=== PATIENT | male | born 1955 | race Caucasian/White ===

== ENCOUNTER → 2019-07-18 | Outpatient (CLI) | payer BC ==
--- NOTE | 2019-07-18 11:00 | Diagnostic Imaging Report ---
INDICATION: Chronic kidney disease. PA and lateral views were obtained. FINDINGS: The heart size, mediastinal configuration, and pulmonary vascularity are within normal limits. There is no pleural effusion, pneumothorax, or pneumonia. The osseous structures are unremarkable. IMPRESSION: No acute cardiopulmonary abnormality. Dictated by: Dictated on workstation # [id number]
== END ==
LOC: RAD FS 10:28
PROVIDERS: ATTEND Internal Medicine Nephrology
DX: N18.9 Chronic kidney disease, unspecified (principal)
CPT/HCPCS: 71046

== ENCOUNTER 2019-12-11 02:50 | Observation (INO) | payer BC ==
[~2019-12-11] VITALS: Ht 170.1 cm; Wt 107.6 kg
--- NOTE | 2019-12-11 03:15 | ED Cough/URI ---
General Chief Complaint: Fever-Adult/Adol Stated Complaint: FEVER,SOB Source: patient Exam Limitations: no limitations History of Present Illness Date Seen by Provider: Dec 11, 2019 Time Seen by Provider: 03:00 Initial Comments The patient is a 64-year-old male who presents for evaluation of fever, cough, and shortness of breath. He states that he had a fever last week but that resolved and then started up again last night. He states that his cough is very coarse sounding. He denies any known sick contacts. He is saturating 91-93% on room air upon arrival. He denies chest pain, nausea or vomiting, diaphoresis, night sweats, dizziness, abdominal or back pain, hemoptysis, or syncope. He does report some shortness of breath. He is alert and oriented 4, calm, and appears to be in no distress this time. Timing/Duration: yesterday Severity/Quality: moderate, productive cough Associated Symptoms: cough, fever/chills, shortness of breath Allergies and Home Medications Allergies Uncoded Allergies: PCN (Allergy, Unknown, 12/11/19) Patient Home Medication List Home Medication List Reviewed: Yes Review of Systems Review of Systems Constitutional: fever EENTM: no symptoms reported Respiratory: cough, short of breath Cardiovascular: no symptoms reported Gastrointestinal: no symptoms reported Genitourinary: no symptoms reported Musculoskeletal: no symptoms reported Skin: no symptoms reported Psychiatric/Neurological: No Symptoms Reported Hematologic/Lymphatic: No Symptoms Reported Immunological/Allergic: no symptoms reported All Other Systems Reviewed Negative Unless Noted: Yes Past Ovamtky-Embrzc-Zwdotj Hx Past Med/Social Hx: Reviewed Nursing Past Med/Soc Hx Patient Social History Recent Foreign Travel: No Contact w/Someone Who Travel: No Physical Exam Vital Signs - First Documented 12/11/19 03:05 Temp 38.9 Pulse 109 Resp 16 B/P (MAP) 160/88 (112) Pulse Ox 91 O2 Delivery Room Air Capillary Refill : Height: '" Weight: lbs. oz. kg; BMI Method: General Appearance: WD/WN, no apparent distress Eyes: Bilateral Eye Normal Inspection, Bilateral Eye PERRL, Bilateral Eye EOMI HEENT: PERRL/EOMI, normal ENT inspection, pharynx normal Neck: non-tender, full range of motion, supple Respiratory: no respiratory distress, rhonchi Cardiovascular: no edema, no JVD, tachycardia Gastrointestinal: normal bowel sounds, non tender, soft Extremities: normal range of motion, non-tender, normal inspection, no pedal edema Neurologic/Psychiatric: no motor/sensory deficits, alert, normal mood/affect, oriented x 3 Skin: normal color, warm/dry Focused Exam Lactate Level 12/11/19 03:10: Lactic Acid Level 0.98 Lactic Acid Level Laboratory Tests Test 12/11/19 03:10 Lactic Acid Level 0.98 MMOL/L (0.50-2.00) Progress/Results/Core Measures Suspected Sepsis SIRS Temperature: Pulse: Respiratory Rate: Laboratory Tests 12/11/19 03:10: White Blood Count 7.9 Blood Pressure / Mean: 12/11/19 03:10: Lactic Acid Level 0.98 Laboratory Tests 12/11/19 03:10: Creatinine 1.37H, Platelet Count 166, Total Bilirubin 0.5 Results/Orders Lab Results Laboratory Tests Test 12/11/19 03:10 Range/Units White Blood Count 7.9 4.3-11.0 10^3/uL Red Blood Count 4.10 L 4.35-5.85 10^6/uL Hemoglobin 12.5 L 13.3-17.7 G/DL Hematocrit 37 L 40-54 % Mean Corpuscular Volume 90 80-99 FL Mean Corpuscular Hemoglobin 30 25-34 PG Mean Corpuscular Hemoglobin Concent 34 32-36 G/DL Red Cell Distribution Width 14.1 10.0-14.5 % Platelet Count 166 130-400 10^3/uL Mean Platelet Volume 10.9 H 7.4-10.4 FL Neutrophils (%) (Auto) 69 42-75 % Lymphocytes (%) (Auto) 20 12-44 % Monocytes (%) (Auto) 10 0-12 % Eosinophils (%) (Auto) 1 0-10 % Basophils (%) (Auto) 0 0-10 % Neutrophils # (Auto) 5.5 1.8-7.8 X 10^3 Lymphocytes # (Auto) 1.6 1.0-4.0 X 10^3 Monocytes # (Auto) 0.8 0.0-1.0 X 10^3 Eosinophils # (Auto) 0.1 0.0-0.3 10^3/uL Basophils # (Auto) 0.0 0.0-0.1 10^3/uL Sodium Level 138 135-145 MMOL/L Potassium Level 4.1 3.6-5.0 MMOL/L Chloride Level 101 98-107 MMOL/L Carbon Dioxide Level 23 21-32 MMOL/L Anion Gap 14 5-14 MMOL/L Blood Urea Nitrogen 19 H 7-18 MG/DL Creatinine 1.37 H 0.60-1.30 MG/DL Estimat Glomerular Filtration Rate 52 BUN/Creatinine Ratio 14 Glucose Level 129 H 70-105 MG/DL Lactic Acid Level 0.98 0.50-2.00 MMOL/L Calcium Level 9.5 8.5-10.1 MG/DL Corrected Calcium 9.3 8.5-10.1 MG/DL Total Bilirubin 0.5 0.1-1.0 MG/DL Aspartate Amino Transf (AST/SGOT) 34 5-34 U/L Alanine Aminotransferase (ALT/SGPT) 24 0-55 U/L Alkaline Phosphatase 83 40-136 U/L Total Protein 6.9 6.4-8.2 GM/DL Albumin 4.2 3.2-4.5 GM/DL Micro Results Microbiology 12/11/19 Influenza Types A,B Antigen (LASHONDA) - Final, Complete My Orders Orders - NITA NIELSEN DO Cbc With Automated Diff (12/11/19 03:06) Comprehensive Metabolic Panel (12/11/19 03:06) Ed Iv/Invasive Line Start (12/11/19 03:06) Lactic Acid Analyzer (12/11/19 03:06) Blood Culture (12/11/19 03:06) Chest 1 View Ap/Pa Only (12/11/19 03:06) Influenza A And B Antigens (12/11/19 03:06) Continuous Pulse Ox (12/11/19 03:06) Acetaminophen Tablet (Tylenol Tablet) (12/11/19 03:30) Albuterol/Ipra Inhalation Soln (Duoneb I (12/11/19 03:30) Svn Small Volume Nebulizer (12/11/19 03:16) Ns Iv 1000 Ml (Sodium Chloride 0.9%) (12/11/19 03:30) Chest Pa/Lat (2 View) (12/11/19 03:20) Oxygen-Administer 07,19 (12/11/19 03:46) Oseltamivir 75 Mg Capsule (Tamiflu 75 (12/11/19 04:00) Medications Given in ED Current Medications Medications Dose Ordered Sig/Shubham Route Start Time Stop Time Status Last Admin Dose Admin Acetaminophen 1,000 mg ONCE ONCE PO 12/11/19 03:30 12/11/19 03:31 DC 12/11/19 03:22 1,000 MG Albuterol/ Ipratropium 3 ml ONCE ONCE INH 12/11/19 03:30 12/11/19 03:31 DC 12/11/19 03:23 3 ML Vital Signs/I&O 12/11/19 03:05 Temp 38.9 Pulse 109 Resp 16 B/P (MAP) 160/88 (112) Pulse Ox 91 O2 Delivery Room Air Capillary Refill : Progress Note : Progress Note @9195 - Patient informed of lab and imaging results including the finding of influenza A. I concern is that the patient's action level is fluctuating between 90 and 93% on room air. He is agreeable to observation for continued IV fluids, continuous pulse oximetry monitoring, and monitoring for response to treatment. Hospitalist paged for admission. @9371 - Dr. Huffman accepts the tele obs admission at [facility]. Departure Communication (Admissions) Time/Spoke to Admitting Phy: 03:53 Dr. Huffman accepts the tele obs admission at [facility] Impression Primary Impression: Influenza A Additional Impression: Hypoxia Disposition: ADMITTED INPATIENT Condition: Stable Admissions Decision to Admit Reason: Admit from ER (General) Decision to Admit/Date: Dec 11, 2019 Time/Decision to Admit Time: 03:53 Departure-Patient Inst. Referrals: DANNIELLE ATWOOD MD (PCP/Family) Primary Care Physician NITA NIELSEN DO Dec 11, 2019 03:15
[2019-12-11 03:20] LABS: BASOPHILS % (AUTO) 0 % (0-10); EOSINOPHILS # (AUTO) 0.1 10^3/uL (0.0-0.3); EOSINOPHILS % (AUTO) 1 % (0-10); HEMATOCRIT 37 % (40-54); HEMOGLOBIN 12.5 G/DL (13.3-17.7); LYMPHOCYTES # (AUTO) 1.6 X 10^3 (1.0-4.0); LYMPHOCYTES % (AUTO) 20 % (12-44); MEAN CORPUSCULAR HEMOGLOBIN 30 PG (25-34); MEAN CORPUSCULAR HGB CONC 34 G/DL (32-36); MEAN CORPUSCULAR VOLUME 90 FL (80-99); MEAN PLATELET VOLUME 10.9 FL (7.4-10.4); MONOCYTES # (AUTO) 0.8 X 10^3 (0.0-1.0); MONOCYTES % (AUTO) 10 % (0-12); NEUTROPHILS # (AUTO) 5.5 X 10^3 (1.8-7.8); NEUTROPHILS % (AUTO) 69 % (42-75); PLATELET COUNT 166 10^3/uL (130-400); RED CELL DISTRIBUTION WIDTH 14.1 % (10.0-14.5); WHITE BLOOD COUNT 7.9 10^3/uL (4.3-11.0)
[2019-12-11] MEDS ORDERED: ACETAMINOPHEN 500 MG TAB (TYLENOL) PO ONE (03:30)
[2019-12-11] MEDS ORDERED: RT-ALBUTEROL/IPRATROPIUM 3 ML (DUONEB) VIAL INH ONE (03:30)
[2019-12-11] MEDS ORDERED: NS IV 1000 ML 1,000 ML IV SCH ×2 (03:30→06:30)
[2019-12-11 03:37] LABS: POTASSIUM 4.1 MMOL/L (3.6-5.0)
[2019-12-11 03:38] LABS: ALBUMIN 4.2 GM/DL (3.2-4.5); BILIRUBIN,TOTAL 0.5 MG/DL (0.1-1.0); CALCIUM 9.5 MG/DL (8.5-10.1); CREATININE SERUM 1.37 MG/DL (0.60-1.30); TOTAL PROTEIN 6.9 GM/DL (6.4-8.2)
--- NOTE | 2019-12-11 03:48 | NUR ---
PLACED 02 AT 2 LITERS PER NC DUE TO SATS WERE 91-94% ON ROOM AIR. AFTER PLACING THE 02 HIS SATS WEE 95-96%.
[2019-12-11] MEDS ORDERED: OSELTAMIVIR 75 MG (TAMIFLU) CAPSULE PO ONE (04:00)
[2019-12-11 05:30] VITALS: BP 117/75
--- NOTE | 2019-12-11 05:30 | NUR ---
JOSÉ ANTONIO RAZA admitted to room 510-1, with an admitting diagnosis of INFLUENZA A AND HYPOXIA, on 12/11/19 from [place] via , accompanied by .JOSÉ ANTONIO RAZA introduced to surroundings, call light, bed controls, phone, TV, temperature control, lights, meal times, smoking policy, visitor policy, side rail policy, bathrooms and showers. Patient Rights given to patient in the handbook. JOSÉ ANTONIO RAZA verbalizes understanding that [facility] is not responsible for the loss or damage to any personal effects or valuables that are kept in the patients posession during their hospitalization. The following Patient Care Plans were discussed with the : Discharge Planning, ,, and . JOSÉ ANTONIO RAZA verbalizes understanding of Interdisciplinary Patient Education. Patient and/or family were informed about the Rapid Response Team and its purpose.
[2019-12-11 05:45] VITALS: BP 117/75
--- NOTE | 2019-12-11 06:48 | Diagnostic Imaging Report ---
INDICATION: Febrile. Nonproductive cough. Comparison with 07/18/2019. FINDINGS: Portable chest. Study is very limited due to respiratory motion and poor inspiratory effort. No definite acute infiltrates are seen. Heart is not enlarged. IMPRESSION: Very limited study with no acute abnormalities demonstrated. Dictated by: Dictated on workstation # [id number]
[2019-12-11] MEDS ORDERED: CATHETER FLUSH 10 ML SYR IV PRN (07:00)
--- NOTE | 2019-12-11 07:06 | Diagnostic Imaging Report ---
INDICATION: Febrile. Nonproductive cough. Comparison with 12/11/2019 at 3:07 a.m. FINDINGS: PA and lateral chest show good aeration. No air-trapping or infiltrates. Heart is not enlarged. Pulmonary vasculature is normal. No pneumothorax or pleural effusion. No bony abnormalities. IMPRESSION: Normal PA and lateral chest. Dictated by: Dictated on workstation # [id number]
[2019-12-11 08:00] VITALS: BP 125/73
--- NOTE | 2019-12-11 08:43 | NUR ---
PATIENT TO FLOOR AT THIS TIME VIA W/C ACCOMPANIED BY HIS 2 SONS AND RN, THIS RN WILL ASSUME CARE OF THIS PATIENT AT THIS TIME. PATIENT DENIES PAIN OR ANY NEEDS AT THIS TIME.
--- NOTE | 2019-12-11 11:19 | Short Stay Summary-Hospitalist ---
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 His states that his fever started on December 08. He states that it got worse in the middle of the night last night reaching temperatures as high as 103 and he overall just did not feel well. He has a history of a renal transplant and is on chronic immunosuppression which prompted him to seek evaluation in the emergency room. He was found to be febrile there is well and rapid flu testing was done and was postive for Flu A. He was also mildly hypoxic at 91% and given his renal transplant decision was made to observe him. This morning he reports feeling much better and is breathing well. He is not on any oxygen. He is requesting DC home. Source: patient, family Date Seen 12/11/19 Time Seen by a Provider: 11:19 Attending Physician Pratibha Huffman MD PCP Brown Samuels MD Referring Physician Date of Admission Dec 11, 2019 at 04:00 Home Medications & Allergies Home Medications Reviewed patient Home Medication Reconciliation performed by pharmacy medication reconciliations help desk technician and/or nursing. Patients Allergies have been reviewed. Allergies Allergies Uncoded Allergies PCN ( Allergy, Mild, Hives, 12/11/19) Past Vsmjgxy-Qyiotp-Agwhog Hx Past Med/Social Hx: Reviewed Nursing Past Med/Soc Hx Patient Social History Recent Foreign Travel: No Contact w/other who traveled: No Recent Hopitalizations: No Recent Infectious Disease Expo: Yes ([employer]) Immunizations Up To Date Date of Influenza Vaccine: Jul 11, 2019 Seasonal Allergies Seasonal Allergies: No Past Medical History Genitourinary: Renal Failure History of Blood Disorders: No Review of Systems Constitutional: chills, fever, malaise EENTM: no symptoms reported Respiratory: cough, short of breath Cardiovascular: no symptoms reported Gastrointestinal: no symptoms reported Genitourinary: no symptoms reported Musculoskeletal: no symptoms reported Skin: no symptoms reported Psychiatric/Neurological: No Symptoms Reported Physical Exam Physical Exam Vital Signs Vital Signs - First Documented 12/11/19 12/11/19 03:05 04:02 Temp 38.9 Pulse 109 Resp 16 B/P (MAP) 160/88 (112) Pulse Ox 91 O2 Delivery Room Air O2 Flow Rate 2.00 Capillary Refill : Less Than 3 Seconds Height, Weight, BMI Height: '" Weight: lbs. oz. kg; 37.18 BMI Method: General Appearance: No Apparent Distress, WD/WN, Obese Eyes: Bilateral Eye Normal Inspection, Bilateral Eye PERRL, Bilateral Eye EOMI Respiratory: Lungs Clear, No Accessory Muscle Use, No Respiratory Distress Cardiovascular: Regular Rate, Rhythm, No Murmur Gastrointestinal: Normal Bowel Sounds, Soft Extremity: No Calf Tenderness, No Pedal Edema Neurologic/Psychiatric: Alert, Oriented x3, Normal Mood/Affect Results Results/Procedures Labs Laboratory Tests 12/11/19 03:10 Patient resulted labs reviewed. Imaging: Reviewed Imaging Report Short Stay Diagnosis Discharge Diagnosis-Short Stay Admission Diagnosis INfluenza Final Discharge Diagnosis Influenza Conclusion Plan Influenza Much improved Afebrile Satting well on room air Requesting DC home and clinically appropriate for outpatient management Will DC home with Tamiflu to finish course. Clinical Quality Measures DVT/VTE Risk/Contraindication: Risk Factor Score Per Nursin RFS Level Per Nursing on Admit: 3=High DIANE ARCHER MD Dec 11, 2019 11:19
--- NOTE | 2019-12-11 11:25 | Discharge Inst-Simple/Standard ---
Discharge Inst-Standard Patient Instructions/Follow Up Plan of Care/Instructions/FU: please continue to take her medications as written. Please follow up with her primary care doctor within the next week. Activity as Tolerated: Yes Discharge Diet: No Restrictions Return to The Hospital For: fever, chills, confusion, shortness of breath, chest pain, if you feel you are getting worse. DIANE ARCHER MD Dec 11, 2019 11:25
[2019-12-11 11:30] VITALS: BP 125/73
[2019-12-11] MEDS ORDERED: RELABEL FOR HOME USE MC SCH (11:30)
[2019-12-11] MEDS ORDERED: OSELTAMIVIR 75 MG (TAMIFLU) CAPSULE PO SCH ×2 (11:32→21:00)
== END 2019-12-11 11:50 | disposition home or self-care (01) ==
LOC: EDUNIT# 02:50 → ER FS 02:52 → CSD 04:00 → 4TH 08:00
PROVIDERS: ADMIT Internal Medicine; ATTEND Internal Medicine
DX: J10.1 Influenza due to other identified influenza virus with other respiratory manifestations (principal); R09.02 Hypoxemia; Z88.0 Allergy status to penicillin
CPT/HCPCS: 36415; 71045; 71046; 80053; 83605; 85025; 87040; 87804; G0378

== ENCOUNTER 2022-10-17 09:05 | Emergency (ER) | payer BC ==
[~2022-10-17] VITALS: Ht 170.2 cm; Wt 98.4 kg
[2022-10-17] MEDS ORDERED: LACTATED RINGERS 1,000 ML IV STA (09:34)
[2022-10-17 09:41] LABS: BASOPHILS % (AUTO) 0 % (0-10); EOSINOPHILS # (AUTO) 0.2 10^3/uL (0.0-0.3); EOSINOPHILS % (AUTO) 2 % (0-10); HEMATOCRIT 31 % (40-54); HEMOGLOBIN 10.3 g/dL (13.3-17.7); LYMPHOCYTES # (AUTO) 2.2 10^3/uL (1.0-4.0); LYMPHOCYTES % (AUTO) 19 % (12-44); MEAN CORPUSCULAR HEMOGLOBIN 29 pg (25-34); MEAN CORPUSCULAR HGB CONC 33 g/dL (32-36); MEAN CORPUSCULAR VOLUME 86 fL (80-99); MEAN PLATELET VOLUME 9.7 fL (9.0-12.2); MONOCYTES # (AUTO) 1.2 10^3/uL (0.0-1.0); MONOCYTES % (AUTO) 10 % (0-12); NEUTROPHILS % (AUTO) 69 % (42-75); PLATELET COUNT 319 10^3/uL (130-400); WHITE BLOOD COUNT 11.7 10^3/uL (4.3-11.0)
[2022-10-17] MEDS ORDERED: PROMETHAZINE INJ 25 MG/ML (PHENERGAN) AMP IVP ONE (09:45)
[2022-10-17] MEDS ORDERED: MECLIZINE 25 MG (ANTIVERT) TAB PO ONE (09:45)
--- NOTE | 2022-10-17 09:50 | ED Neurological Problem ---
General Chief Complaint: Dizziness/Syncope Stated Complaint: DIZZINESS; SOB Source: patient, EMS Exam Limitations: no limitations History of Present Illness Date Seen by Provider: Oct 17, 2022 Time Seen by Provider: 09:10 Initial Comments 67yoM with PMH of kidney transplant and HTN coming in via EMS from home due to dizziness. Around 45 minutes prior to arrival, with any movements, the room would start spinning, and he would need to sit down. Improved relatively rapidly when he stopped moving. Denies any vision changes otherwise, weakness, numbness, chest pain, shortness of breath, headache, neck stiffness, fever, or any other concerns associated with it. Has never really had symptoms like this before. Does not really take aspirin daily, no hearing changes or tinnitus, no recent viral illness although he says he has a little bit of a runny nose right now. Did recently have upper extremity cellulitis which was treated with IV antibiotics as an inpatient followed by 1 week of antibiotics at home via PICC line. He has been off antibiotics for over a week and the infection has been cl eared per the patient. Denies any history of stroke or TIA, no CAD history, is not on blood thinners, no recent falls, does not smoke, and is not diabetic Allergies and Home Medications Allergies Uncoded Allergies: PCN (Allergy, Mild, Hives, 12/11/19) Patient Home Medication List Home Medication List Reviewed: Yes Meclizine HCl (Meclizine HCl) 25 Mg Tablet, 25 MG PO BID PRN for VERTIGO Prescribed by: LANDRY WHITT on 10/17/22 1106 Ondansetron (Ondansetron Odt) 4 Mg Tab.rapdis, 4 MG SL Q6H PRN for NAUSEA/VOMITING Prescribed by: LANDRY WHITT on 10/17/22 1106 Review of Systems Review of Systems Constitutional: No fever Eyes: Other (Vertigo) Ears, Nose, Mouth, Throat: no symptoms reported Respiratory: no symptoms reported Cardiovascular: no symptoms reported Gastrointestinal: no symptoms reported Genitourinary: no symptoms reported Musculoskeletal: no symptoms reported Psychiatric/Neurological: See HPI Endocrine: No Symptoms Reported Hematologic/Lymphatic: No Symptoms Reported All Other Systems Reviewed Negative Unless Noted: Yes Past Ojlqrfc-Jcamyk-Okfwgy Hx Patient Social History Tobacco Use?: No Substance use?: No Seasonal Allergies Seasonal Allergies: No Past Medical History Surgeries: Yes (KIDNEY TRANSPLANT) Respiratory: No Cardiac: No Neurological: No Genitourinary: Yes (KIDNEY TRANSPLANT) Renal Failure Gastrointestinal: No Musculoskeletal: No Endocrine: No HEENT: No Cancer: No Psychosocial: No Blood Disorders: No Physical Exam Vital Signs Capillary Refill : Height, Weight, BMI Height: '" Weight: lbs. oz. kg; 37.18 BMI Method: General Appearance: WD/WN HEENT: PERRL/EOMI, normal ENT inspection, TMs normal, pharynx normal Neck: non-tender, full range of motion, supple, normal inspection Respiratory: chest non-tender, lungs clear, normal breath sounds, no respiratory distress, no accessory muscle use Cardiovascular: regular rate, rhythm, no edema, no murmur Gastrointestinal: normal bowel sounds, non tender, soft; No distended, No guarding, No rebound Back: normal inspection, no CVA tenderness Extremities: normal range of motion, non-tender, normal inspection, no pedal edema, no calf tenderness, normal capillary refill Neurologic/Psychiatric: supervisor II-XII nml as tested, no motor/sensory deficits, alert, normal mood/affect, oriented x 3 Crainal Nerves: normal hearing, normal speech, PERRL Coordination/Gait: normal finger to nose, normal gait Motor/Sensory: no motor deficit, no sensory deficit, no pronator drift Skin: normal color, warm/dry Lymphatic: no adenopathy Progress/Results/Core Measures Results/Orders Lab Results Laboratory Tests Test 10/17/22 09:15 Range/Units White Blood Count 11.7 H 4.3-11.0 10^3/uL Red Blood Count 3.60 L 4.30-5.52 10^6/uL Hemoglobin 10.3 L 13.3-17.7 g/dL Hematocrit 31 L 40-54 % Mean Corpuscular Volume 86 80-99 fL Mean Corpuscular Hemoglobin 29 25-34 pg Mean Corpuscular Hemoglobin Concent 33 32-36 g/dL Red Cell Distribution Width 13.5 10.0-14.5 % Platelet Count 319 130-400 10^3/uL Mean Platelet Volume 9.7 9.0-12.2 fL Immature Granulocyte % (Auto) 1 % Neutrophils (%) (Auto) 69 42-75 % Lymphocytes (%) (Auto) 19 12-44 % Monocytes (%) (Auto) 10 0-12 % Eosinophils (%) (Auto) 2 0-10 % Basophils (%) (Auto) 0 0-10 % Neutrophils # (Auto) 8.0 H 1.8-7.8 10^3/uL Lymphocytes # (Auto) 2.2 1.0-4.0 10^3/uL Monocytes # (Auto) 1.2 H 0.0-1.0 10^3/uL Eosinophils # (Auto) 0.2 0.0-0.3 10^3/uL Basophils # (Auto) 0.0 0.0-0.1 10^3/uL Immature Granulocyte # (Auto) 0.1 0.0-0.1 10^3/uL Prothrombin Time 14.0 12.2-14.7 SEC INR Comment 1.0 0.8-1.4 Activated Partial Thromboplast Time 25 24-35 SEC Sodium Level 138 135-145 MMOL/L Potassium Level 4.1 3.6-5.0 MMOL/L Chloride Level 103 98-107 MMOL/L Carbon Dioxide Level 22 21-32 MMOL/L Anion Gap 13 5-14 MMOL/L Blood Urea Nitrogen 19 H 7-18 MG/DL Creatinine 1.13 0.60-1.30 MG/DL Estimat Glomerular Filtration Rate 71 BUN/Creatinine Ratio 17 Glucose Level 132 H 70-105 MG/DL Calcium Level 9.5 8.5-10.1 MG/DL Corrected Calcium 10.0 8.5-10.1 MG/DL Total Bilirubin 0.5 0.1-1.0 MG/DL Aspartate Amino Transf (AST/SGOT) 16 5-34 U/L Alanine Aminotransferase (ALT/SGPT) 17 0-55 U/L Alkaline Phosphatase 103 40-136 U/L Troponin I < 0.30 <0.30 NG/ML Total Protein 6.9 6.4-8.2 GM/DL Albumin 3.4 3.2-4.5 GM/DL My Orders Orders - LANDRY WHITT MD Ekg Tracing (10/17/22 09:19) Ekg-Prn For Chest Pain Or Rhyt (10/17/22 09:19) Cbc With Automated Diff (10/17/22 09:34) Protime With Inr (10/17/22 09:34) Partial Thromboplastin Time (10/17/22 09:34) Comprehensive Metabolic Panel (10/17/22 09:34) Troponin I Fs (10/17/22 09:34) Ed Iv/Invasive Line Start (10/17/22 09:34) Vital Signs Stroke Patient Q15M (10/17/22 09:34) Ct Head Wo-R/O Stroke (10/17/22 09:34) O2 (10/17/22 09:34) Intake & Output 06,14,22 (10/17/22 09:34) Monitor-Rhythm Ecg Trace Only (10/17/22 09:34) Dysphagia Screening Tool Q10MX1 (10/17/22 09:34) Meclizine Tablet (Antivert Tablet) (10/17/22 09:45) Lactated Ringers (Lr 1000 Ml Iv Solution (10/17/22 09:34) Promethazine Injection (Phenergan Injec (10/17/22 09:45) Chest 1 View Ap/Pa Only (10/17/22 10:24) Medications Given in ED Current Medications Medications Dose Ordered Sig/Shubham Route Start Time Stop Time Status Last Admin Dose Admin Meclizine HCl 25 mg ONCE ONCE PO 10/17/22 09:45 10/17/22 09:46 DC 10/17/22 09:53 25 MG Promethazine HCl 12.5 mg ONCE ONCE IVP 10/17/22 09:45 10/17/22 09:46 DC 10/17/22 09:54 12.5 MG Progress Progress Note : Progress Note 67-year-old male presenting for vertigo-like symptoms. ABCs were intact, vital stable on presentation, NIH of 0. Glucose is 132. He is asymptomatic when sitting still. CT head negative for acute findings, chest x-ray negative for significant acute abnormalities, basic labs including cardiac biomarkers without significant abnormality. He is in sinus rhythm on EKG. Austin-Hallpike maneuver positive to the left. Symptoms significantly improved after doing Floyd maneuver. Symptoms consistent with BPPV. I believe the patient is stable for discharge with outpatient follow-up. He was sent home with strict return precautions Initial ECG Impression Date: Oct 17, 2022 Initial ECG Impression Time: 09:26 Initial ECG Rate: 90 Initial ECG Rhythm: Normal Sinus Comment Wide QRS with a right bundle branch block, no STEMI, significant difficulty obtaining EKG with some artifact, difficult to fully interpret due to this Diagnostic Imaging Diagonstic Imaging: CT (head) Comments [facility] [place] [place] NAME: JOSÉ ANTONIO RAZA [facility] REC#: [id number] PT STATUS: REG ER : 1955 PHYSICIAN: LANDRY WHITT MD ADMIT DATE: 10/17/22/ER FS Draft Date of Exam:10/17/22 CT HEAD WO-R/O STROKE PROCEDURE: CT head wo r/o stroke. TECHNIQUE: Multiple contiguous axial images were obtained through the brain without the use of intravenous contrast. Auto Exposure Controls were utilized during the CT exam to meet ALARA standards for radiation dose reduction. INDICATION: Dizziness and vertigo. COMPARISON: No prior studies are available for comparison. FINDINGS: The ventricles and sulci are within normal limits. No sulcal effacement or midline shift is identified. There is mild periventricular low attenuation, consistent with chronic microvascular ischemia. No acute intra-axial or extra-axial hemorrhage is detected. The Cisterns are patent. The visualized paranasal sinuses are clear. IMPRESSION: Chronic changes. No acute intracranial process is detected. These results were called to Dr. Landry Whitt of the Emergency Department at 9:56 AM. Dictated on workstation # [id number] Dict: 10/17/22 0954 Trans: 10/17/[address] [place] [address] [phone] Interpreted by: TONI YAN MD Electronically signed by: [facility] [place], [place] NAME: JOSÉ ANTONIO RAZA [facility] REC#: [id number] PT STATUS: REG ER : 1955 PHYSICIAN: LANDRY WHITT MD ADMIT DATE: 10/17/22/ER FS Draft Date of Exam:10/17/22 CHEST 1 VIEW AP/PA ONLY INDICATION: Shortness of breath. COMPARISON: 12/11/2019. FINDINGS: There is mild bilateral basilar atelectasis. There are no consolidated infiltrates. The heart is not enlarged. No pulmonary edema. No pneumothorax or pleural effusion. IMPRESSION: Bibasilar atelectasis. Dictated on workstation # [id number] Dict: 10/17/22 1048 Trans: 10/17/22 [phone] Interpreted by: PAPITO GARCIA MD Electronically signed by: Departure Impression Primary Impression: BPPV (benign paroxysmal positional vertigo) Qualified Codes: H81.12 - Benign paroxysmal vertigo, left ear Disposition: 01 HOME, SELF-CARE Condition: Stable Departure-Patient Inst. Decision time for Depature: 11:04 Referrals: DANNIELLE ATWOOD MD (PCP) Primary Care Physician JENNA GUERRIER MD Patient Instructions: Vertigo ED Add. Discharge Instructions: You do have BPPV which is a type of vertigo. Your Austin-Hallpike test was positive when you turned to the left meaning it is likely coming from your left side. The maneuver we did to help fix it was called the Floyd maneuver which you can repeat over and over at home to help with this. You can also take the meclizine that we are prescribing you. You can also take Zofran as needed for nausea with this. Please follow-up with an ENT such as Dr. Guerrier, his numbers in this paperwork, if symptoms persist. Scripts Ondansetron (Ondansetron Odt) 4 Mg Tab.rapdis 4 MG SL Q6H PRN for NAUSEA/VOMITING for 5 Days, #20 TAB Prov: LANDRY WHITT MD 10/17/22 Meclizine HCl (Meclizine HCl) 25 Mg Tablet 25 MG PO BID PRN for VERTIGO for 7 Days, #14 TAB Prov: LANDRY WHITT MD 10/17/22 LANDRY WHITT MD Oct 17, 2022 09:50
--- NOTE | 2022-10-17 10:00 | Diagnostic Imaging Report ---
PROCEDURE: CT head wo r/o stroke. TECHNIQUE: Multiple contiguous axial images were obtained through the brain without the use of intravenous contrast. Auto Exposure Controls were utilized during the CT exam to meet ALARA standards for radiation dose reduction. INDICATION: Dizziness and vertigo. COMPARISON: No prior studies are available for comparison. FINDINGS: The ventricles and sulci are within normal limits. No sulcal effacement or midline shift is identified. There is mild periventricular low attenuation, consistent with chronic microvascular ischemia. No acute intra-axial or extra-axial hemorrhage is detected. The Cisterns are patent. The visualized paranasal sinuses are clear. IMPRESSION: Chronic changes. No acute intracranial process is detected. These results were called to Dr. Matthew Castellano of the Emergency Department at 9:56 AM. Dictated by: Dictated on workstation # [id number]
[2022-10-17 10:04] LABS: CARBON DIOXIDE 22 MMOL/L (21-32); CHLORIDE 103 MMOL/L (98-107); POTASSIUM 4.1 MMOL/L (3.6-5.0); SODIUM 138 MMOL/L (135-145)
[2022-10-17 10:05] LABS: ALANINE AMINOTRANSFERASE 17 U/L (0-55); ALBUMIN 3.4 GM/DL (3.2-4.5); ALKALINE PHOSPHATASE 103 U/L (40-136); BILIRUBIN,TOTAL 0.5 MG/DL (0.1-1.0); BUN/CREATININE RATIO 17; CALCIUM 9.5 MG/DL (8.5-10.1); CREATININE SERUM 1.13 MG/DL (0.60-1.30); GFR ESTIMATED 71; GLUCOSE 132 MG/DL (70-105); TOTAL PROTEIN 6.9 GM/DL (6.4-8.2)
--- NOTE | 2022-10-17 10:52 | Diagnostic Imaging Report ---
INDICATION: Shortness of breath. COMPARISON: 12/11/2019. FINDINGS: There is mild bilateral basilar atelectasis. There are no consolidated infiltrates. The heart is not enlarged. No pulmonary edema. No pneumothorax or pleural effusion. IMPRESSION: Bibasilar atelectasis. Dictated by: Dictated on workstation # [id number]
[2022-10-17] MEDS ORDERED: MECL-149 PO (11:06)
[2022-10-17] MEDS ORDERED: ONDA4TAB11 SL (11:06)
[2022-10-17 11:30] VITALS: BP 116/72
== END 2022-10-17 11:30 | disposition home or self-care (01) ==
LOC: EDUNIT# 09:05 → ER FS 09:06
DX: H81.10 Benign paroxysmal vertigo, unspecified ear (principal); Z94.0 Kidney transplant status
CPT/HCPCS: 36415; 70450; 71045; 80053; 84484; 85025; 85610; 85730; 93005; 93041